=== PATIENT | female | born 1950 | race Caucasian/White ===

== ENCOUNTER → 2018-10-17 | Outpatient (CLI) | payer OTHER ==
[~2018-10-17] MED LIST: ADULT LOW DOSE81 MG PO; NOHOMEMEDICATIONS
== END ==
LOC: M.RAD 10:09
DX: M79.671 Pain in right foot (principal)

== ENCOUNTER → 2018-10-26 | Outpatient (CLI) | payer OTHER ==
--- NOTE | 2018-10-26 18:06 | CARDNUC ---
[place] [address] CARDIAC NUCLEAR IMAGING REPORT Name: TIFFANIERODRÍGUEZ AMCK Room: [facility]#: [id number] Admission: 10/26/18 Attend Phys: Walt Ibanez, Discharge: Date of : 50 Date of Service: 10/26/18 1805 Report #: [id number] THIS REPORT FOR: //name// APPROVED REPORT Study performed: 10/26/2018 07:45:00 Indication: svt, back pain Patient Location: Out-Patient Stress Tech: Marianna Patterson Stress Nurse: Eileen Walker RN Ht: 5 ft 1 in Wt: 135 lbs BSA: 1.60 m2 BMI: 25.50 Medical History Medical History: diabetes, svt Medications: zebeta, lisinopril Allergies: nkda Cardiac Risk Factors: age, diabetes, family hx Exercise History: Physically active Meds Held (24 hrs): zebeta Resting Data Rest SPECT myocardial perfusion imaging was performed in supine position 30 minutes following the intravenous injection of 11.4 mCi of Tc-99m Sestamibi. Time of rest injection: 08:05 The images were gated to evaluate regional wall motion and calculate left ventricular ejection fraction. Administration Route: IV Administration Site: Right AC Pharmacologic Stress Pharmacologic stress test was performed by injecting Regadenoson 0.4 mg IV push over 10-15 seconds immediately followed by the intravenous injection of 33.5 mCi of Tc-99m Sestamibi. Time of stress injection: 09:40 Administration Route: IV Administration Site: Right AC Heart Rate at time of stress injection: 152 bpm. Gated Stress SPECT was performed 40 minutes after stress injection. The images were gated to evaluate regional wall motion and calculate [place] [address] CARDIAC NUCLEAR IMAGING REPORT Name: RODRÍGUEZ MORENO Room: [facility]#: [id number] Admission: 10/26/18 Attend Phys: Walt Ibanez, Discharge: Date of : 50 Date of Service: 10/26/18 1805 Report #: [id number] Prone imaging was performed. Stress Test Details Stress Test: Pharmacologic stress was paired with low level exercise. Reason for pharmacologic stress test: physical limitation. HR Max Heart Rate (APMHR): 152 bpm Resting HR: 89 bpm Target HR (85% APMHR): 129 bpm Max HR Achieved: 152 bpm % of APMHR: 100 Recovery HR: 113 bpm BP Resting BP: 145/99 mmHg Max BP: 178/83 mmHg Recovery BP: 143/79 mmHg ECG Resting ECG: Sinus Rhythm Stress ECG: Sinus Tachycardia ST Change: None Arrhythmia: None Recovery ECG: Sinus Rhythm Recovery ST Change: None Recovery Arrhythmia: None Clinical Reason for Termination: Completed protocol Exercise duration: 0 min sec Exercise capacity: 1 METs Patient tolerated Lexiscan infusion without significant symptoms. Nurse Comments pt hr increased to 152, pt appeared pale and was removed from treadmill to sit and swing her legs Stress ECG Conclusion The baseline 12-lead EKG shows sinus rhythm with no significant ST or T wave abnormality. EKGs obtained during and post Lexiscan show sinus rhythm and sinus tachycardia with no significant ST or T wave changes when compared baseline. There were no stress-induced arrhythmias. Study Quality Study: [place] [address] CARDIAC NUCLEAR IMAGING REPORT Name: RODRÍGUEZ MORENO Room: [facility]#: [id number] Admission: 10/26/18 Attend Phys: Walt Ibanez, Discharge: Date of : 50 Date of Service: 10/26/18 1805 Report #: [id number] Study Data At rest, the left ventricular ejection fraction was 73%.. Post stress, the left ventricular ejection was 77%.. TID = 0.72. Perfusion Normal left ventricular perfusion. Wall Motion Normal left ventricular wall motion. Nuclear Conclusion ECG Findings: negative for ischemia Clinical Findings: negative for ischemia Nuclear Findings: negative for ischemia Exercise Capacity: not assessed Left Ventricular Function: normal Risk Study: low Myocardial perfusion images show no defect to suggest infarct or ischemia. Left ventricular systolic function is normal on gated studies. This is a low risk study. <Conclusion> The baseline 12-lead EKG shows sinus rhythm with no significant ST or T wave abnormality. EKGs obtained during and post Lexiscan show sinus rhythm and sinus tachycardia with no significant ST or T wave changes when compared baseline. There were no stress-induced arrhythmias. <ELECTRONICALLY SIGNED> By: Walt Ibanez MD, FACC 10/26/181804 04 04 Walt Ibanez MD, FACC /INF
== END ==
LOC: M.NUC 07:46
DX: M54.6 Pain in thoracic spine (principal); E11.9 Type 2 diabetes mellitus without complications; Z82.49 Family history of ischemic heart disease and other diseases of the circulatory system; Z79.899 Other long term (current) drug therapy; Z86.79 Personal history of other diseases of the circulatory system

== ENCOUNTER → 2021-08-26 | Outpatient (CLI) | payer BC ==
--- NOTE | 2021-08-26 11:24 | 2DMMODE ---
[place] [address] 2 D/M-MODE ECHOCARDIOGRAM Name: RODRÍGUEZ MORENO Room: [facility]#: [id number] Admission: 08/26/21 Attend Phys: Walt Ibanez, Discharge: Date of : 50 Date of Service: 08/26/21 1124 Report #: [id number] THIS REPORT FOR: cc: Linus He Bradley L. DO Holkins, John M. MD [facility] ~ APPROVED REPORT Study performed: 08/26/2021 11:42:02 EXAM: Comprehensive 2D, Doppler, and color-flow Echocardiogram Patient Location: Out-Patient BSA: 1.66 HR: 86 bpm BP: 141/81 mmHg Other Information Study Quality: Good Indications Dyspnea Chest Pain 2D Dimensions IVSd: 10.62 (7-11mm) LVOT Diam: 19.22 (18-24mm) LVDd: 43.89 mm PWd: 10.62 (7-11mm) Ascending Ao: 26.04 (22-36mm) LVDs: 30.24 (25-40mm) Aortic Root: 27.44 mm Volumes Left Atrial Volume (Systole) LA ESV Index: 8.00 mL/m2 Aortic Valve AoV Peak Drake.: 1.31 m/s AO Peak Gr.: 6.84 mmHg LVOT Max P.93 mmHg AO Mean Gr.: 3.37 mmHg LVOT Mean P.86 mmHg LVOT Max V: 1.22 m/s AO V2 VTI: 25.87 cm LVOT Mean V: 0.78 m/s GAETANO (VTI): 2.91 cm2 LVOT V1 VTI: 25.96 [place] [address] 2 D/M-MODE ECHOCARDIOGRAM Name: RODRÍGUEZ MORENO Room: [facility]#: [id number] Admission: 08/26/21 Attend Phys: Walt Ibanez, Discharge: Date of : 50 Date of Service: 08/26/21 1124 Report #: [id number] E/A Ratio: 0.72 MV Decel. Time: 227.91 ms MV E Max Drake.: 0.59 m/s MV PHT: 66.09 ms MVA (PHT): 3.33 cm2 TDI E/Lateral E': 8.43 E/Medial E': 7.38 Medial E' Drake.: 0.08 m/s Lateral E' Drake.: 0.07 m/s Pulmonary Valve PV Peak Drake.: 0.88 m/s PV Peak Gr.: 3.10 mmHg Left Ventricle The left ventricle is normal size. There is normal LV segmental wall motion. There is normal left ventricular wall thickness. Left ventricular systolic function is normal. The left ventricular ejection fraction is within the normal range. LVEF is 60-65%. Grade I - abnormal relaxation pattern. Right Ventricle The right ventricle is normal size. The right ventricular systolic function is normal. Atria The left atrium size is normal. The right atrium size is normal. Aortic Valve The aortic valve is normal in structure. No aortic regurgitation is present. There is no aortic valvular stenosis. Mitral Valve The mitral valve is normal in structure. There is no mitral valve regurgitation noted. No evidence of mitral valve stenosis. Tricuspid Valve The tricuspid valve is normal in structure. There is no tricuspid valve regurgitation noted. Pulmonic Valve The pulmonary valve is normal in structure. There is no pulmonic valvular regurgitation[place] [address] 2 D/M-MODE ECHOCARDIOGRAM Name: RODRÍGUEZ MORENO Room: [facility]#: [id number] Admission: 08/26/21 Attend Phys: Walt Ibanez, Discharge: Date of : 50 Date of Service: 08/26/21 1124 Report #: [id number] The aortic root is normal in size. IVC is normal in size and collapses >50% with inspiration. Pericardium There is no pericardial effusion. <Conclusion> The left ventricle is normal size. There is normal left ventricular wall thickness. Left ventricular systolic function is normal. The left ventricular ejection fraction is within the normal range. LVEF is 60-65%. Grade I - abnormal relaxation pattern. The right ventricle is normal size. The left atrium size is normal. The aortic valve is normal in structure. The mitral valve is normal in structure. The tricuspid valve is normal in structure. IVC is normal in size and collapses >50% with inspiration. There is no pericardial effusion. There is normal LV segmental wall motion. <ELECTRONICALLY SIGNED> By: River Peraza MD, [facility] 08/26/21 1124 1124 1124 River Peraza MD, FACC /INF
--- NOTE | 2021-08-26 17:22 | CARDNUC ---
[place] [address] CARDIAC NUCLEAR IMAGING REPORT Name: RODRÍGUEZ MORENO Room: [facility]#: [id number] Admission: 08/26/21 Attend Phys: Walt Ibanez, Discharge: Date of : 50 Date of Service: 08/26/21 1722 Report #: [id number] THIS REPORT FOR: cc: Linus He Bradley L. DO Liston, Michael J. MD [facility] ~ APPROVED REPORT Imaging Protocol: Rest Tc-99m/Stress Tc-99m 1 day Study performed: 08/26/2021 07:30:00 Indication: Chest pain, Dyspnea Patient Location: Out-Patient Stress Tech: ORALIA VERNON Stress Nurse: Eileen Walker RN NM Tech:GLORIA Rushing Ht: 5 ft 1 in Wt: 150 lbs BSA: 1.67 m2 BMI: 28.33 Medical History Medical History: Arrhythmia Medications: zebeta Allergies: No known drug allergies Cardiac Risk Factors: Age Exercise History: Physically active Meds Held (24 hrs): zebeta Resting Data Rest SPECT myocardial perfusion imaging was performed in supine position 30 minutes following the intravenous injection of 10.3 mCi of Tc-99m Sestamibi. Time of rest injection: 0750 Date: 08/26/2021 The images were gated to evaluate regional wall motion and calculate left ventricular ejection fraction. Administration Route: IV Exercise Stress At peak stress, the patient was injected intravenously with 32.6mCi of Tc-99m Sestamibi. Time of stress injection: 939 Date: 08/26/2021 Administration Route: IV Gated Stress SPECT was performed 30 [place] [address] CARDIAC NUCLEAR IMAGING REPORT Name: RODRÍGUEZ MORENO Room: [facility]#: [id number] Admission: 08/26/21 Attend Phys: Walt Ibanez, Discharge: Date of : 50 Date of Service: 08/26/21 1722 Report #: [id number] The images were gated to evaluate regional wall motion and calculate left ventricular ejection fraction. Prone imaging was performed. Stress Test Details Stress Test: Exercise stress testing was performed using a Raheel protocol. HR Max Heart Rate (APMHR): 150 bpm Resting HR: 86 bpm Target HR (85% APMHR): 127 bpm Max HR Achieved: 141 bpm % of APMHR: 94 Recovery HR: 90 bpm BP Resting BP: 141/81 mmHg Max BP: 185/61 mmHg Recovery BP: 156/97 mmHg ECG Resting ECG: Sinus Rhythm Stress ECG: Sinus Tachycardia ST Change: None Arrhythmia: None Recovery ECG: Sinus Rhythm Recovery ST Change: None Recovery Arrhythmia: None Clinical Reason for Termination: Fatigue Exercise duration: 5 min 02 sec Exercise capacity: 4.64 METs Functional Aerobic Impairment 90% The patient had no significant cardiac symptoms with exercise. Nurse Comments had to lower the incline at the last minute for safety. Pt refused to do a Lexiscan Stress ECG Conclusion The baseline twelve-lead EKG shows sinus rhythm without significant ST segment abnormality. EKGs obtained during and post exercise show sinus rhythm and sinus tachycardia with no significant ST segment or T wave changes when compared to baseline. There were no stress-induced [place] [address] CARDIAC NUCLEAR IMAGING REPORT Name: TIFFANIERODRÍGUEZ MACK Room: [facility]#: [id number] Admission: 08/26/21 Attend Phys: Walt Ibanez, Discharge: Date of : 50 Date of Service: 08/26/21 1722 Report #: [id number] Study: Good Artifact: No artifact Study Data At rest, the left ventricular ejection fraction was 80%.. Post stress, the left ventricular ejection was 82%.. TID = 0.98. Perfusion Perfusion images show uniform uptake of the radioisotope throughout the myocardium on both resting and stress images. There were no defects to suggest infarct or ischemia. Wall Motion Normal left ventricular wall motion. Nuclear Conclusion ECG Findings: negative for ischemia Clinical Findings: negative for ischemia Nuclear Findings: negative for ischemia Exercise Capacity: Limited Left Ventricular Function: normal Risk Study: low Perfusion images show no defect to suggest infarct or ischemia. Left ventricular systolic function appears normal on gated studies. This is a low risk study. <Conclusion> The baseline twelve-lead EKG shows sinus rhythm without significant ST segment abnormality. EKGs obtained during and post exercise show sinus rhythm and sinus tachycardia with no significant ST segment or T wave changes when compared to baseline. There were no stress-induced arrhythmias. <ELECTRONICALLY SIGNED> By: Walt Ibanez MD, [facility] 08/26/211721 21 21 Walt Ibanez MD, FACC /INF
== END ==
LOC: M.CRD 08-10 10:34 → M.NUC 07:34
PROVIDERS: ATTEND Internal Medicine Cardiovascular Disease
DX: R00.0 Tachycardia, unspecified (principal); R06.02 Shortness of breath; R07.9 Chest pain, unspecified